=== PATIENT | female | born 1945 | race African-American/Black ===

== ENCOUNTER 2017-09-12 16:15 | Outpatient (CLI) | payer OTHER ==
[2017-09-12 17:21] LABS: Hemoglobin 12.3 g/dL (12.0-16.0); Mean Corpuscular HGB CONC 33.6 g/dL (32.0-36.0); Mean Corpuscular Hemoglobin 29.4 pg (27.0-31.0); Mean Corpuscular Volume 87.6 fl (81.0-99.0); Mean Platelet Volume 9.2 fL (7.4-10.4); Platelet Count 223 thou/uL (130-400); RBC Distribution Width 12.9 % (11.5-14.5); Red Blood Cell (RBC) Count 4.17 mill/uL (4.20-5.40); White Blood Cell (WBC) Count 7.5 thou/uL (4.8-10.8)
[2017-09-12 17:44] LABS: ALT (SGPT) 37 U/L (8-55); AST (SGOT) 35 U/L (5-34); Albumin 4.4 g/dL (3.4-4.8); Alkaline Phosphatase 73 U/L (40-150); Anion Gap 14 mmol/L (10-20); BUN (Urea Nitrogen) 16 mg/dL (9.8-20.1); Bilirubin, Direct 0.1 mg/dL (0.1-0.3); Bilirubin, Total 0.3 mg/dL (0.2-1.2); Calc. Creatinine Clearance 0 mL/min (70-130); Carbon Dioxide 26 mmol/L (23-31); Chloride 102 mmol/L (98-107); Estimated GFR-MDRD Greater than 90; Glucose 87 mg/dL (83-110); Potassium 3.7 mmol/L (3.5-5.1); Protein, Total 7.6 g/dL (6.0-8.3); Sodium 138 mmol/L (136-145)
--- NOTE | 2017-09-12 18:53 | RAD ---
RADIOGRAPH CHEST 2 VIEWS: 09/12/17 HISTORY: 72-year-old female for preoperative evaluation. FINDINGS: There is no air space density, pulmonary edema, pleural effusion, pneumothorax, or cardiomegaly. IMPRESSION: No acute cardiopulmonary findings. nery [] POS: KAYLEN
--- NOTE | 2017-09-14 18:36 | EKG ---
Test Reason : Blood Pressure : / mmHG Vent. Rate : 067 BPM Atrial Rate : 067 BPM P-R Int : 162 ms QRS Dur : 088 ms QT Int : 386 ms P-R-T Axes : 058 -29 019 degrees QTc Int : 407 ms Normal sinus rhythm Normal ECG When compared with ECG of 30-DEC-2014 17:35, No significant change was found Confirmed by BHANU HARE, SFady ([id number]) on 09/14/2017 6:36:10 PM Referred By: CLIF Confirmed By:DR. Main DRUMMOND MD
== END 2017-09-12 16:16 | disposition home or self-care (01) ==
LOC: LABBT 16:15
PROVIDERS: ATTEND Obstetrics & Gynecology
DX: Z01.818 Encounter for other preprocedural examination (principal); D25.9 Leiomyoma of uterus, unspecified; R10.2 Pelvic and perineal pain
CPT/HCPCS: 71046; 80048; 80076; 85027; 86850; 86900; 86901; 93005; 93010

== ENCOUNTER 2017-09-12 16:30 | Inpatient (IN) | payer OTHER, MEDICARE ==
[2017-09-12 16:46] VITALS: BMI 30.6
--- NOTE | 2017-09-15 15:08 | HP ---
DATE OF ADMSSION: 09/16/2017 PRESENTING COMPLAINT: Urinary pressure, urgency and frequency with abdominal distention and uterine fibroids, postmenopausal. HISTORY OF PRESENT ILLNESS: Ms. Maloney is a 72-year-old 3, para 3, status post x3. There is unknown history of fibroid uterus and desires definitive surgical management. OB AND LEATHER SHAVER HISTORY: x3. No history of dysplasia, status post BTL, no fibroids noted on prior ul trasound and CT scans. PAST MEDICAL HISTORY: Significant for hypertension, hyperlipidemia, and breast cancer. PAST SURGICAL HISTORY: Significant for cholecystectomy, lumpectomy, and XRT as well as BTL. MEDICATIONS: Include anastrozole 1 mg, lisinopril-hydrochlorothiazide, lovastatin, omeprazole, and M iraLax. ALLERGIES: CODEINE AND PENICILLIN. SOCIAL HISTORY: Denies tobacco, alcohol, or IV drug use. FAMILY HISTORY: Noncontributory. REVIEW OF SYSTEMS: Noncontributory. PHYSICAL EXAMINATION: GENERAL: Black female, in no acute distress. VITAL SIGNS: Height 5 feet 4 inches, 175, BMI 30, blood pressure 156/66. HEENT: Within normal limits. LUNGS: Clear to auscultation bilaterally. HEART: Regular rhythm. BREASTS: Without masses, status post left lumpectomy. ABDOMEN: Soft and nontender without fluid wave. PELVIC: Vulva without lesions. Vagina without discharge. Cervix parous. Uterus is enlarged and re gular in 12-14 week, but mobile uterus. No adnexal masses noted. EXTREMITIES: Without clubbing, cyanosis or edema. RADIOLOGIC IMAGING: Noted in HPI. IMPRESSION: A 12-14 week size uterus, not amenable to laparoscopic management, causing symptomatic a bdominal pain, distention and urinary symptoms. PLAN: DEVON-BSO. The patient understands risks and benefits of the procedure. We will administer blanca ropriate antibiotic and DVT prophylaxis.
[2017-09-16] MEDS ORDERED: Levofloxacin 500 mg/D5W 100 ml Premix Bag ONE (08:22)
[2017-09-16] MEDS ORDERED: Clindamycin/D5W 900 mg/50 ml Premix Bag ONE (08:22)
[2017-09-16] MEDS ORDERED: Fentanyl 250 MCG/5 ML VIAL ONE (10:44)
[2017-09-16] MEDS ORDERED: Fentanyl 100 MCG/2 ML VIAL ONE ×2 (12:34→13:08)
--- NOTE | 2017-09-16 12:42 | OP ---
DATE OF PROCEDURE: 09/16/2017 PREOPERATIVE DIAGNOSIS: Twelve to 14 week size uterus with multiple fibroids and pelvic pressure an d pain. POSTOPERATIVE DIAGNOSIS: Ten to 12 week sized uterus with the multiple fibroids and pelvic pressure and pain. PROCEDURE: Total abdominal hysterectomy and bilateral salpingo-oophorectomy. SURGEON: Truong Leone M.D. CLINICAL AUDITOR: Stefany Johnson D.O. ANESTHESIA: General endotracheal. ESTIMATED BLOOD LOSS: 250 mL. COMPLICATIONS: None. DRAINS: Aguila to gravity. OPERATIVE FINDINGS: 1. Multifibroid uterus approximately 10-12 week size. 2. Normal appearing tubes and ovaries bilaterally. 3. Hemostasis with clear urine. 4. Counts correct at the end of the procedure. DISPOSITION: To the recovery room in good condition. DESCRIPTION OF OPERATIVE PROCEDURE: After obtaining proper consent, the patient was taken to the ope rating room where general endotracheal anesthesia was achieved. The patient prepped and draped in th e usual manner for abdominal hysterectomy. Pfannenstiel incision made through the skin, carried down to the fascia, the midline incised sharply superiorly and laterally with curved Young scissors. Rect us dissected off sharply superiorly and inferiorly. Peritoneum divided in the midline, peritoneum en tered bluntly, taking care to avoid trauma to the underlying viscera. O'Swapnil-O'Rbown retractor placed inside. Bladder blade placed in the usual manner and then bowel packed out of the way and bow el blade placed in the usual manner. Pavithra clamps placed across the utero-ovarian ligaments bilatera lly. The uterus was mobilized and on the patient's left, the round ligament was ligated, transected opening the broad, creating a window underneath the IP, Thais clamp placed across this transected an d ligated with 0 Vicryl suture. Skeletization of the cardinal ligament and the uterine vessels was c arried out. The vesicouterine peritoneum incised sharply and dissected off the lower uterine segment , cervix and upper vagina. Thais clamps placed across the uterine vessels at the level of the inter nal cervical os cut and transected and ligated with 0 Vicryl suture. The identical procedure carried out on the patient's right. Once this was achieved, further dissection was carried out to assure th at the bladder was completely off the cervix and upper vagina. Straight ballentines were placed acro ss the cardinal ligaments bilaterally, transecting and ligating down to the level of the apex of the vagina where curved Heaneys x2 were placed across, the specimen was then amputated. Hofmeister stitc hes of 0 Vicryl placed at each corner and the intervening vagina closed using [id number] of 0 Vi cryl suture. Suction irrigation was carried out. Good hemostasis was noted throughout although ther e was a mild amount of oozing at the level of the bladder dissection off the cervix and upper vagina. FloSeal was applied to this area. Good hemostasis was noted. Counts were correct at this point in time after removing the lap sponges and the retractor. Peritoneum was reapproximated using 0 Vicryl suture. Rectus inspected and noted to be dry. Fascia reapproximated using running continuous 0 PDS suture x2. Subcutaneous tissue irrigated and rendered hemostatic with Bovie cautery, reapproximated using a 3-0 plain gut. Skin reapproximated with claudio. The patient was taken to the recovery bernabe in good condition. Lovenox is being initiated in the postoperative period for DVT prophylaxis kathleen g with SCDs and ambulation. COLD WORK OPERATOR was ordered for pain management.
[2017-09-16] MEDS ORDERED: Naloxone HCl 0.4 mg/ml Vial IV PRN (12:50)
[2017-09-16] MEDS ORDERED: Fentanyl 5000 MCG/250 ML CADD IVPB PRN (12:50)
[2017-09-16] MEDS ORDERED: Zolpidem Tartrate 5 MG TAB PO PRN (12:50)
[2017-09-16] MEDS ORDERED: diphenhydrAMINE 50 MG/ML VIAL IM PRN (12:50)
[2017-09-16] MEDS ORDERED: diphenhydrAMINE 25 MG CAP PO PRN (12:50)
[2017-09-16] MEDS ORDERED: Promethazine HCl 25 MG/ML VIAL IM PRN ×2 (12:50→15:27)
[2017-09-16] MEDS ORDERED: diphenhydrAMINE 50 MG/ML VIAL IVP PRN (12:50)
[2017-09-16] MEDS ORDERED: Ondansetron HCl/PF 4 MG/2 ML Vial IVP PRN ×2 (12:50→15:27)
[2017-09-16] MEDS ORDERED: Communication Order-Pharmacy FS SCH (13:00)
[2017-09-16] MEDS ORDERED: fentaNYL Citrate/PF 2,000 MCG in Sodium Chloride 0.9% 60 ML IV SCH (13:15)
[2017-09-16] MEDS ORDERED: Promethazine HCl 25 MG/ML VIAL ONE (14:23)
[2017-09-16] MEDS ORDERED: PHENYLEPHRINE-NS 100 MCG/ML 10 ML SYRINGE ONE (16:29)
[2017-09-16] MEDS ORDERED: Lidocaine 1% PF 5 ML VIAL ONE (16:29)
[2017-09-16] MEDS ORDERED: Ketorolac Tromethamine 30 MG/ML VIAL ONE (16:29)
[2017-09-16] MEDS ORDERED: Ondansetron HCl/PF 4 MG/2 ML Vial ONE (16:29)
[2017-09-16] MEDS ORDERED: Glycopyrrolate 0.2 MG/ML 5 ML SYRINGE ONE (16:29)
[2017-09-16] MEDS ORDERED: Propofol 200 MG/20 ML VIAL ONE (16:29)
[2017-09-16] MEDS: Ketorolac Tromethamine 30 MG/ML VIAL IVP PRN ×2 (17:39→23:58)
[2017-09-16] MEDS: Sodium Chloride 0.9% 1,000 ML IV SCH (17:41)
[2017-09-16] MEDS: Enoxaparin Sodium 40 MG/0.4 ML SYRINGE SC SCH (21:02)
[2017-09-17] MEDS: Sodium Chloride 0.9% 1,000 ML IV SCH ×3 (01:52→13:57)
[2017-09-17 05:43] LABS: Hemoglobin 10.3 g/dL (12.0-16.0); Mean Corpuscular HGB CONC 32.5 g/dL (32.0-36.0); Mean Corpuscular Hemoglobin 28.7 pg (27.0-31.0); Mean Corpuscular Volume 88.4 fl (81.0-99.0); Mean Platelet Volume 9.7 fL (7.4-10.4); Platelet Count 172 thou/uL (130-400); RBC Distribution Width 12.8 % (11.5-14.5); Red Blood Cell (RBC) Count 3.58 mill/uL (4.20-5.40); White Blood Cell (WBC) Count 10.6 thou/uL (4.8-10.8)
[2017-09-17] MEDS: Ketorolac Tromethamine 30 MG/ML VIAL IVP PRN (06:11)
[2017-09-17] MEDS ORDERED: traMADol HCl 50 MG TAB PO PRN (07:49)
[2017-09-17] MEDS ORDERED: Ibuprofen 600 MG TAB PO SCH (08:00)
--- NOTE | 2017-09-17 08:15 | PRG ---
DATE OF SERVICE: 09/17/2017 TIME OF SERVICE: 07:45. SUBJECTIVE: Ms. Maloney is postoperative day #1, status post TAHBSO. She reports good pain control th is morning. OBJECTIVE: VITAL SIGNS: T-max and T-now is 99.5, blood pressure at 04:30 was 163/72. She had not received her usual antihypertensives and those have been administered at this time. Repeat vitals not been done. Pulse 84, respirations 20. GENITOURINARY: Urine output has been 870 mL from Aguila, status post surgery. LABORATORY STUDIES: Reveals a hematocrit of 31.7% this morning with a normal white count. PHYSICAL EXAMINATION: GENERAL: Black female, alert, and oriented x4. LUNGS: Clear to auscultation bilaterally. HEART: Regular rate and rhythm. ABDOMEN: Soft and nontender. She has bowel sounds in all 4 quadrants. Bandage is dry. Abdomen is n ondistended. EXTREMITIES: Without clubbing, cyanosis or edema. IMPRESSION: Doing well, status post total abdominal hysterectomy with bilateral salpingo-oophorectom y at postoperative day #1. PLAN: 1. Discontinue Aguila and bandage. 2. Anticipate anesthesia to discontinue LETTER CARRIER. 3. Initiate oral analgesics with ibuprofen and tramadol while this patient has CODEINE allergy. 4. Anticipate possible 09/18/2017 versus 09/19/2017 discharge.
[2017-09-17] MEDS: Lisinopril/Hydrochlorothiazide 10 mg/12.5 mg Tablet PO SCH (08:24)
[2017-09-17] MEDS: Multivit, Therapeutic 1 TAB PO SCH (08:24)
[2017-09-17] MEDS: Anastrozole 1 MG TAB PO SCH (08:35)
[2017-09-17] MEDS ORDERED: MULTIVITAMIN PO SCH (09:00)
[2017-09-17] MEDS ORDERED: Lisinopril/Hydrochlorothiazide 10 mg/12.5 mg Tablet PO SCH (09:00)
[2017-09-17] MEDS ORDERED: Non-Formulary Item 1 EACH (Lovastatin [Altoprev] 40 MG) PO SCH (09:00)
[2017-09-17] MEDS ORDERED: Non-Formulary Item 1 EACH (Omeprazole [Omeprazole] 20 MG) PO SCH (09:00)
[2017-09-17] MEDS ORDERED: Acetaminophen 325 MG TAB PO SCH (10:00)
[2017-09-17] MEDS: Ketorolac Tromethamine 30 MG/ML VIAL IVP SCH ×3 (11:32→21:09)
[2017-09-17] MEDS ORDERED: Fentanyl 100 MCG/2 ML VIAL SLOW IVP PRN (13:04)
[2017-09-17] MEDS ORDERED: HYDROcodone/Acetaminophen 10/325 mg Tablet PO PRN ×2 (13:04)
[2017-09-17] MEDS ORDERED: Atorvastatin Calcium 10 MG TAB PO SCH (21:00)
[2017-09-17] MEDS: Enoxaparin Sodium 40 MG/0.4 ML SYRINGE SC SCH (21:08)
[2017-09-17] MEDS ORDERED: Sodium Chloride 0.9% 10 ML ONE (21:15)
[2017-09-18] MEDS: Sodium Chloride 0.9% 1,000 ML IV SCH ×2 (00:04→09:37)
[2017-09-18] MEDS: Ketorolac Tromethamine 30 MG/ML VIAL IVP SCH ×2 (04:38→09:38)
[2017-09-18 08:00] VITALS: BP 146/68; TEMP 99
--- NOTE | 2017-09-18 08:33 | DIS ---
DATE OF ADMISSION: 09/16/2017 DATE OF DISCHARGE: 09/18/2017 PRIMARY PROCEDURE: TAHBSO. SUMMARY OF HOSPITAL COURSE: Ms. Maloney underwent a TAHBSO on the . Pathology was benign on disch arge. She had an unremarkable postoperative course, remained afebrile and blood pressures remained w ithin acceptable limits on her antihypertensives. Her abdomen was soft and nontender, without reboun d or guarding. Bowel sounds positive in all 4 quadrants. Incision was intact and dry. Extremities without clubbing, cyanosis or edema. DISCHARGE MEDICINES: Include tramadol and Toradol. FOLLOWUP: She will be followed at [facility] [place] in 1 week for staple removal and 4 we eks for postoperative check.
[2017-09-18] MEDS: Lisinopril/Hydrochlorothiazide 10 mg/12.5 mg Tablet PO SCH (09:36)
[2017-09-18] MEDS: Anastrozole 1 MG TAB PO SCH (09:37)
[2017-09-18] MEDS: Multivit, Therapeutic 1 TAB PO SCH (09:38)
== END 2017-09-18 10:25 | disposition home or self-care (01) | DRG 743 ==
LOC: SURG A 09-16 07:44 → 3SW 09-16 14:28
PROVIDERS: ADMIT Obstetrics & Gynecology; ATTEND Obstetrics & Gynecology
PROC: 0UT90ZZ Resection of Uterus, Open Approach (ICD-10-PCS; principal; 2017-09-16)
PROC: 0UT70ZZ Resection of Bilateral Fallopian Tubes, Open Approach (ICD-10-PCS; 2017-09-16)
PROC: 0UT20ZZ Resection of Bilateral Ovaries, Open Approach (ICD-10-PCS; 2017-09-16)
DX: D25.1 Intramural leiomyoma of uterus (principal); D25.9 Leiomyoma of uterus, unspecified; I10 Essential (primary) hypertension; E78.5 Hyperlipidemia, unspecified; Z85.3 Personal history of malignant neoplasm of breast; Z88.0 Allergy status to penicillin; Z88.5 Allergy status to narcotic agent
CPT/HCPCS: 36415; 85027; 88307; A4216; J0131; J1200; J1650; J1885; J1956; J2001; J2405; J2550; J2704; J3010; J3490; J7050